=== PATIENT | male | born 1945 | race Caucasian/White ===

== ENCOUNTER 2017-09-29 16:40 | Inpatient (IN) | payer MEDICARE | END 2017-10-07 15:30 | DRG 193 | LOC: D.SDCHOLD 16:40 → D.MS 17:00 | DX: J18.9 Pneumonia, unspecified organism (principal); E43 Unspecified severe protein-calorie malnutrition; J96.21 Acute and chronic respiratory failure with hypoxia; J96.22 Acute and chronic respiratory failure with hypercapnia; J44.0 Chronic obstructive pulmonary disease with (acute) lower respiratory infection; J44.1 Chronic obstructive pulmonary disease with (acute) exacerbation; Z68.1 Body mass index [BMI] 19.9 or less, adult; F17.203 Nicotine dependence unspecified, with withdrawal; M06.9 Rheumatoid arthritis, unspecified; I50.9 Heart failure, unspecified; I25.10 Atherosclerotic heart disease of native coronary artery without angina pectoris ==

== ENCOUNTER 2018-05-05 22:07 | Observation (INO) | payer MEDICARE ==
[~2018-05-05] VITALS: Ht 175.3 cm; Wt 49.9 kg
--- NOTE | ~2018-05-05 | OP ---
PATIENT NAME: WOODROW GANT MEDICAL RECORD: [id number] :47 LOCATION:D.M2 D.2115 ADMISSION DATE:05/05/18 SURGEON: GENEVIEVE PINO MD DATE OF OPERATION: 05/06/2018 PROCEDURE: Left heart catheterization, selective coronary angiography, right radial. CATHETERS: [place] catheter, radial sheath. The procedure was well tolerated. We proceeded to do PTCA stenting of the LAD. Procedure was finished. FINDINGS: Left ventriculography in 30-degree CORREA view: Normal wall motion and normal systolic function. CORONARY ANATOMY: LEFT MAIN: Left main is free of disease. LAD: Has a severe diffuse proximal stenosis before the takeoff of first diagonal. CIRCUMFLEX: Free of disease. RIGHT CORONARY ARTERY: Totally occluded, fills via left to right collaterals. IMPRESSION AND PLAN: Intervention to the LAD momentarily. DESCRIPTION OF PROCEDURE: Using indwelling radial sheath, EBU 3.5 guiding catheter provided good guide catheter support followed by 300 cm Whisper wire, which was placed across the diffusely 80% to 90% stenosed LAD down this portion of vessel. Stent deployed was a 3.0 x 30 mm Integrity nondrug-eluting stent up to 14 atmospheres for 45 seconds. Final angiography shows excellent resolution of diffuse 80% to 90% stenosis to no significant residual. YEIMY flow was 3 throughout the procedure. Plavix was loaded in the lab. Sheath closed with TR band. TRANSINT:[id number] Voice Confirmation ID: [id number] DOCUMENT ID: [id number] GENEVIEVE PINO MD at 1313 CC: [id number] DICTATION DATE: 05/06/18 1332 LOAN ORIGINATOR: 05/06/18 1338 DIS IN 05/07/18 [place] [id number] [place] [id number]
--- NOTE | ~2018-05-05 | CN ---
PATIENT NAME:WOODROW GANT MEDICAL RECORD: [id number] : 47 LOCATION:Carlos D.2115 ADMIT DATE: 05/05/18 ACCOUNT: [id number] CONSULTING PHYSICIAN: GENEVIEVE PINO MD REFERRING PHYSICIAN: MARY THURMAN MD DATE OF CONSULTATION: 05/06/2018 HISTORY OF PRESENT ILLNESS: A 72-year-old gentleman with a known history of coronary artery disease, status post DORMITORY KEEPER and stenting of the right coronary in 2011, has a history of obstructive pulmonary disease. He is doing fairly well from the cardiovascular point. Breathing has a class II-III symptomatology from obstructive standpoint. However, yesterday had an argument with his roommate, began to leave the room, had onset of chest tightness and pressure radiating to the jaw, reminiscent of his previous angina. We are asked to see him concerning his cardiovascular status. PAST MEDICAL HISTORY: Includes, 1. History of obstructive pulmonary disease. 2. Coronary artery disease as described above. 3. Dyslipidemia. ALLERGIES: CHANTIX. MEDICATIONS: Include, Pulmicort 0.5 b.i.d., tramadol 50 mg q. 6 hours, trazodone 50 mg at bedtime, Paxil 30 every day, and aspirin 81 every day. SOCIAL HISTORY: Currently, resides in a fci, previously a heavy smoker. REVIEW OF SYSTEMS: The patient reports easy bruising but reports no swollen glands. The patient reports no fever, no night sweats, no significant weight gain, no significant weight loss. No significant exercise tolerance. The patient reports no dry eyes, no irritation, no vision change. Patient reports no difficulty hearing and no ear pain. Patient reports no frequent nose bleeds or nose and sinus problems. Patient reports on arm pain on exertion. No shortness of breath while lying down. No history of heart murmur. Patient reports no cough, no wheezing or coughing up blood. Patient reports no abdominal pain, no vomiting. Normal appetite. No diarrhea and not vomiting blood. No nausea and no constipation. Patient reports no incontinence. No difficulty urinating. No hematuria. No increased frequency. Patient reports no muscle aches. No weakness, no arthralgias, no back pain. No swelling of the extremities. Patient reports no abnormal mole, no jaundice, no rashes. Reports no loss of consciousness. No weakness and no numbness. No seizures, dizziness, or headaches. The patient reports no depression, no sleep disturbance, feeling safe in a relationship and no alcohol abuse. Patient reports on fatigue. Reports no runny nose or sinus pressure. No itching, no hives, and no frequent sneezing. PHYSICAL EXAMINATION: GENERAL: Elderly gentleman, in no acute distress. VITAL SIGNS: Blood pressure 107/63, pulse 78 and regular. HEENT: Normocephalic, atraumatic. NECK: No bruits noted. HEART: Regular, occasional extrasystole. LUNGS: Prolonged expiratory phase with a few expiratory wheezes but actually CONSULT REPORT [id number] WOODROW GANT fairly good air movement. ABDOMEN: Soft, nontender. EXTREMITIES: Pulses well preserved 2+ with no edema. NEUROLOGIC: Grossly intact. DIAGNOSTIC DATA: ECG shows minor nonspecific ST-T changes, no old to compare to. IMPRESSION: Unstable angina/acute coronary syndrome. PLAN: For diagnostic angiography, intervention based on above. TRANSINT:[id number] Voice Confirmation ID: [id number] DOCUMENT ID: [id number] GENEVIEVE PINO MD at 1313 CC: [id number] DICTATION DATE: 05/06/18827 SCALE ASSEMBLY SET UP WORKER: 05/06/18928 DIS IN 05/07/18 [facility] [address] [place] [address]
--- NOTE | ~2018-05-05 | HEMODYNAMI ---
PATIENT:WOODROW GANT MEDICAL RECORD: [id number] : 47 [facility]115 [id number] ADMISSION DATE: 05/05/18 Generatedon:05/06/201813:21 Patient name: WOODROW GANT Patient #: [id number] SSN: : 1945 Date of study: 05/06/2018 Page: Of Hemodynamic Procedure Report Patient Data Patient Demographics Procedure consent was obtained First Name: WOODROW Gender: Male Last Name: ALFREDA : 1945 Middle Initial: D Age: 72 year(s) Patient #: [id number] Race: Unknown Additional ID: [id number] Contact details [address]: [address] [place] [address] State: [place] City: [place] Zip code: [address] Past Medical History Allergies Allergen Reaction Date Comments Reported Other allergy 05/06/2018 chantix Admission Admission Data Admission Date: 05/05/2018 Admission Time: 23:37 Admit Source: Emergency department Room #: D.2115 Weight (lbs.): 110.23 Weight (kg.): 50 Procedure Procedure Types Cath Procedure Diagnostic Procedure LHC LH w/Coronaries Sedation Charges Moderate Sedation up to 15 minutes PCI Procedure Coronary Stent Coronary Stent Initial Procedure Description Procedure Date Procedure Date: 05/06/2018 Procedure Start Time: 13:00 Procedure End Time: 13:18 Procedure Staff Name Function Marciano Guidry MD Performing Physician Abilio Stafford RN Nurse Corrine Modi RT Monitor Anival Martinez RT Scrub Procedure Data Cath Procedure Fluoroscopy Diagnostic fluoroscopy Total fluoroscopy Time: 2.9 time: 2.9 min min Diagnostic fluoroscopy Total fluoroscopy dose: 148 dose: 148 mGy mGy Contrast Material Contrast Material Type Amount (ml) Isovue 300 103 Entry Location Entry Primary Successful Side Size Upsize Upsize Entry Closure [place] ccessful Closure Location (Fr) 1 (Fr) 2 (Fr) Remarks Device Remarks Radial Right 6 Fr Mechanical artery Short Compression Estimated blood loss: 10 ml Diagnostic catheters Device Type Used For End Catheter Placement DIAGNOSTIC [place] 110cm 5 Procedure Fr catheter ([id number]) Procedure Complications No complications Procedure Medications Medication Administration Route Dosage Oxygen NC 2 l/min Heparin Flush Bag added to field 2 bags (1000units/500ml NS) 0.9% NaCl I.V. 100 ml/hr Radial Cocktail added to field 1 syringe (Verapomil 2mg/Nitro 400mcg/Heparin 1500units) Fentanyl I.V. 50 mcg Versed I.V. 1 mg Fentanyl I.V. 50 mcg Versed I.V. 1 mg Heparin Bolus I.V. 4000 units Integrilin (Bolus I.V. 4.5 ml 2mg/ml) Integrilin (Bolus wasted 5.5 ml 2mg/ml) Plavix P.O. 600 mg Hemodynamics Rest Heart Rate: 79 (bpm) Pressure Samples Time Site Value (mmHg) Purpose Heart Use Rate(bpm) 13:03 LV 87/2,-3 Snapshot 100 Gradients Valve Time Site Site Mean SEP/DFP Peak To Heart Use 1 2 (mmHg) (sec/min) Peak Rate (mmHg) (bpm) Aortic 13:04 LV AO 91 Snapshots Pre Cath Intra NCS Post Cath Vital Signs Time Heart Resp SPO2 etCO2 NIBP (mmHg) Rhythm Pain Sedation Rate (ipm) (%) (mmHg) Status Level (bpm) 12:28:20 85 26 99 0 117/81(111) NSR 0 (11) 10(A) , No pain 12:32:26 86 20 98 0 106/73(86) NSR 0 (11) 10(A) , No pain 12:36:33 85 17 96 0 87/57(80) NSR 0 (11) 10(A) , No pain 12:40:33 80 17 92 0 90/62(79) NSR 0 (11) 10(A) , No pain 12:44:31 81 16 89 0 100/67(85) NSR 0 (11) 10(A) , No pain 12:48:32 83 16 89 0 95/67(82) NSR 0 (11) 10(A) , No pain 12:52:32 79 16 91 0 105/69(91) NSR 0 (11) 10(A) , No pain 12:56:36 83 16 91 0 105/69(85) NSR 0 (11) 10(A) , No pain 13:00:38 87 16 90 0 108/76(94) NSR 0 (11) 9(A) , No pain 13:04:46 92 14 91 0 89/60(76) NSR 0 (11) 9(A) , No pain 13:08:43 89 15 89 0 106/74(84) NSR 0 (11) 9(A) , No pain 13:12:47 86 15 91 0 112/74(94) NSR 0 (11) 9(A) , No pain 13:16:53 87 15 92 0 108/71(86) NSR 0 (11) 10(A) , No pain 13:18:41 84 17 92 0 108/75(85) NSR 0 (11) 10(A) , No pain Medications Time Medication Route Dose Verified Delivered Reason Note s Effectiveness by by 12:27:36 Oxygen NC 2 l/min Marciano Knox Per physician [facility] Stafford RN, MD 12:27:44 Heparin Flush added 2 bags Marciano Knox used for Bag to [facility] Ellis Stafford RN procedure (1000units/500ml field SPENCER NS) 12:27:53 0.9% NaCl I.V. 100 Marciano Knox Per physician ml/hr [facility] Ellis Stafford RN, MD 12:28:01 Radial Cocktail added 1 Marciano Knox used for (Verapomil to syringe [facility] Ellis Stafford RN procedure 2mg/Nitro field SPENCER 400mcg/Heparin 1500units) 12:59:26 Fentanyl I.V. 50 mcg Marciano Knox for sedation [facility] Ellis Stafford RN, MD 12:59:33 Versed I.V. 1 mg Marciano Knox for sedation [facility] Ellis Stafford RN, MD 13:03:38 Fentanyl I.V. 50 mcg Marciano Knox for sedation [facility] Ellis Stafford RN, MD 13:03:41 Versed I.V. 1 mg Marciano Knox for sedation [facility] Ellis Stafford RN, MD 13:10:30 Heparin Bolus I.V. [address] for units [facility] Stafford RN anticoagulation 13:10:42 Integrilin I.V. 4.5 ml Marciano Knox for (Bolus 2mg/ml) [facility] Ellis Stafford RN antiplatelet MD therapy 13:10:48 Integrilin wasted 5.5 ml Marciano Knox for (Bolus 2mg/ml) [facility] Ellis Stafford RN antiplatelet MD therapy 13:17:47 Plavix P.O. [address] [facility] Stafford RN antiplatelet MD therapy Procedure Log Time Note 12:00:35 Anival Martinez RT(R) sent for patient. Start room use. 12:17:12 Informed consent obtained and on chart 12:17:16 Admit Source: Emergency department 12:17:34 Diagnostic Cath status Elective 12:17:45 Time tracking: Regular hours (M-F 7:00 - 5:00) 12:17:48 Plan of Care:Hemodynamics will remain stable., Cardiac rhythm will remain stable., Comfort level will be maintained., Respiratory function will remain adequate., Patient/ family verbilizes understanding of procedure., Procedure tolerated without complication., Recovers from procedure without complications.. 12:17:53 Patient received from Med II to CCL 3 Alert and oriented. Tansferred to table in Supine position. 12:17:54 Warm blankets applied, and carlos hugger turned on for patient comfort. 12:17:57 Correct patient and procedure confirmed by team. 12:17:58 ECG and BP/O2 sat monitors applied to patient. 12:17:59 Pre-procedure instructions explained to patient. 12:18:00 Pre-op teaching completed and patient verbalized understanding. 12:18:10 H&P Date Dictated: 05/05/2018 Within 30 days and on chart., H&P Addendum completed by physician on day of procedure. (MUST COMPLETE FOR ALL OUTPATIENTS). 12:27:16 Vital chart was started 12:27:36 Oxygen 2 l/min NC was administered by Abilio Stafford RN; Per physician; 12:27:44 Heparin Flush Bag (1000units/500ml NS) 2 bags added to field was administered by Abilio Stafford RN; used for procedure; 12:27:53 0.9% NaCl 100 ml/hr I.V. was administered by Abilio Stafford RN; Per physician; 12:28:01 Radial Cocktail (Verapomil 2mg/Nitro 400mcg/Heparin 1500units) 1 syringe added to field was administered by Abilio Stafford RN; used for procedure; 12:33:29 Baseline sample Acquired. 12:33:32 Rhythm: sinus rhythm 12:33:33 Full Disclosure recording started 12:33:37 Patient NPO since Midnight. 12:33:45 Patient allergic to Other allergychantix 12:33:46 Is the patient allergic to Iodine/contrast media? No. 12:34:17 Is patient on blood thinner?No 12:34:18 Patient diabetic? No. 12:34:22 Previous problem with sedation/anesthesia? No ? 12:34:23 Snore? Yes 12:34:24 Sleep apnea? No 12:34:24 Deviated septum? No 12:34:25 Opens mouth fully? Yes 12:34:26 Sticks out tongue? Yes 12:34:30 Airway obstruction? Yes COPD 12:34:34 Dentures? Yes IN TIGHT 12:34:37 Pre procedure: right dorsailis pedis pulse 2+ Normal; easily identifiable; not easily obliterated 12:34:38 Modified Wayne's test Ulnar < 7 seconds 12:34:41 Patient pain scale 0/10 ?. 12:34:45 IV patent on arrival in left antecubital with 0.9% NaCl at [facility]. 12:35:20 Lab Result : BUN 22 mg/dl 12:35:20 Lab Result : Creatinine 0.9 mg/dl 12:35:20 Lab Result : Hemoglobin 12.7 g/dl 12:35:20 Lab Result : Hematocrit 38.6 % 12:35:23 Lab results completed and on chart. 12:35:25 Right Radial & Right Groin area was prepped with chlora-prep and draped in sterile fashion 12:35:26 Alarms reviewed by R. N. 12:35:27 Sharps counted by scrub and verified by R.N. 12:35:28 Use device set Radial Dx or PCI 12:35:29 ACIST Syringe (75654) opened to sterile field. 12:35:30 Medline Cath Pack ([id number]) opened to sterile field. 12:35:30 Bag Decanter (2002) opened to sterile field. 12:35:31 ACIST Hand Control (82663) opened to sterile field. 12:35:32 ACIST Manifold (15623) opened to sterile field. 12:35:32 Tegaderm 4 x 4 (1626W) opened to sterile field. 12:35:32 MBrace Wrist Support ([id number]) opened to sterile field. 12:35:33 SHEATH 6Fr Prelude Radial ([id number]) opened to sterile field. 12:35:34 DIAGNOSTIC WIRE .035 260cm J wire (235729) opened to sterile field. 12:35:47 Patient Weight : 110.23 lbs 12:50:37 Zero performed for pressure channel P1 12:58:56 --------ALL STOP TIME OUT------ 12:58:57 Final Timeout: patient, procedure, and site verified with staff and physician. All members of the team are in agreement. 12:59:00 Right Radial & Right Groin site verified by team. 12:59:03 Physical assessment completed. ASA score P 2 - A patient with mild systemic disease as per Marciano Guidry MD. 12:59:06 Sedation plan: IV Moderate Sedation Medication:Versed, Fentanyl 12:59:26 Fentanyl 50 mcg I.V. was administered by Abilio Stafford RN; for sedation; 12:59:33 Versed 1 mg I.V. was administered by Abilio Stafford RN; for sedation; 13:00:11 Procedure started. 13:00:19 Local anesthetic to right radial artery with Lidocaine 2% by Marciano Guidry MD.INITIAL ACCESS ONLY 13:02:11 A 6 Fr Short sheath was inserted into the Right Radial artery 13:03:03 A DIAGNOSTIC [place] 110cm 5 Fr catheter (134153) was advanced over the wire and used for Procedure. 13:03:38 Fentanyl 50 mcg I.V. was administered by Abilio Stafford RN; for sedation; 13:03:41 Versed 1 mg I.V. was administered by Abilio Stafford RN; for sedation; 13:03:41 LV gram done using CROREA 13:03:44 Injector settings: Ml/sec: 7, Volume: 15, 13:04:01 LV hemodynamics recorded. 13:04:14 EF : 50 % 13:05:25 LCA angiography performed. 13:07:08 Catheter exchanged over wire. 13:07:27 INFLATOR Merit BasixCompak (CD1766) opened to sterile field. 13:07:29 WHISPER 300cm guide wire ([id number]) opened to sterile field. 13:07:59 GUIDE 6FR EBU 3.5 catheter ([id number]) opened to sterile field. 13:08:46 6 Fr EBU 3.5 guide catheter was inserted over the wire 13:10:30 Heparin Bolus 4000 units I.V. was administered by Abilio Stafford RN; for anticoagulation; 13:10:42 Integrilin (Bolus 2mg/ml) 4.5 ml I.V. was administered by Abilio Stafford RN; for antiplatelet therapy; 13:10:48 Integrilin (Bolus 2mg/ml) 5.5 ml wasted was administered by Abilio Stafford RN; for antiplatelet therapy; 13:11:17 WHISPER 300 wire advanced. 13:12:51 Wire advanced across lesion. 13:13:48 Place stent Inflation Number: 1 A INTEGRITY OTW 3.0 X 30 stent ([id number]) was prepped and advanced across the Mid LAD. The stent was deployed at 14 VERONICA for 0:20 (min:sec). 13:14:37 Stent catheter was removed intact over wire. 13:14:38 Wire removed. 13:14:38 Guide catheter removed. 13:14:53 Procedure ended.(Physican Out) 13:15:23 TR BAND Standard ([id number]) opened to sterile field. 13:15:42 Sheath removed intact; hemostasis achieved with Mechanical Compression to the Right Radial artery. 13:15:55 Fluoroscopy time 02.90 minutes. 13:16:06 Flurop Dose total: 148 13:16:06 Fluoroscopy dose: 148 mGy 13:16:09 Contrast amount:Isovue 300 103ml. 13:16:11 Sharps counted by scrub and verified by R.N. 13:16:13 TR band inflated with 12cc of air. 13:16:24 Post-procedure physical assessment completed. ASA score P 2 - A patient with mild systemic disease as per Marciano Guidry MD. 13:16:27 Post procedure rhythm: sinus rhythm 13:16:34 Estimated blood loss: 10 ml 13:16:37 Post procedure instruction explained to patient.Patient verbalizes understanding. 13:16:38 Patient needs reinforcement of post procedure teaching. 13:17:47 Plavix 600 mg P.O. was administered by Abilio Stafford RN; for antiplatelet therapy; 13:17:58 Procedure type changed to Cath procedure, Diagnostic procedure, LHC, LHC w/Coronaries, Sedation Charges, Moderate Sedation up to 15 minutes, PCI procedure, Coronary Stent, Coronary Stent Initial 13:18:22 Procedure and supply charges have been captured, reviewed, submitted and are correct. 13:18:24 Procedure Complication : No complications 13:18:26 Vital chart was stopped 13:18:26 See physician's report for complete and final results. 13:18:27 Report given to PCU. 13:18:31 Patient transfered to PCU with Bed. 13:18:33 Procedure ended. 13:18:33 Full Disclosure recording stopped 13:18:37 End room use (Document Last) Intervention Summary Intervention Notes Time ActionType Lesion and Equipment Action# Pressure Duration Attributes Used 13:13:48 Place stent Mid LAD INTEGRITY 1 14 00:20 OTW 3.0 X 30 stent ([id number]) Device Usage Item Name Manufacture Quantity Catalog Number Hospital Part Current M inimal Lot# / Charge Number Stock Stock Serial# Code ACIST Syringe Acist 1 40716 542615 765558 021144 2 0 (93954) Medical Systems Inc Medline Cath Cardinal 1 [id number] 333458 99994 097456 5 Explore.To Yellow Pages ([id number]) Bag Decanter Microtek 1 2001S 888377 07735 914355 5 (2001S) Medical Inc. ACIST Hand Acist 1 90720 228792 492943 698776 5 Control (42321) Medical Systems Inc ACIST Manifold Acist 1 05503 661247 413184 880203 5 (02183) Medical Systems Inc Tegaderm 4 x 4 3M 1 1626W 831060 608067 436535 5 (1626W) MBrace Wrist Advanced 1 140-0250-00 139714 69495 116267 5 Support Vascular ([id number]) Dynamics SHEATH 6Fr Merit 1 [id number] 547331 298570 131348 5 Prelude Radial Medical ([id number]) DIAGNOSTIC WIRE St Pradeep 1 970525 197570 438742 147122 3 0 .035 260cm J wire (889771) DIAGNOSTIC Terumo 1 82-6455 175779 602008 849227 5 [place] 110cm 5 Fr catheter (570283) INFLATOR Merit Merit 1 VI1080 932562 676932 218489 1 5 ECO-SAFE Medical (MO2935) WHISPER 300cm Vo 1 [id number] 332428 010787 380214 5 guide wire Vascular ([id number]) GUIDE 6FR EBU Medtronic 1 [id number] 385427 90449 363452 3 3.5 catheter ([id number]) INTEGRITY OTW Medtronic 1 [id number] 657770 237438 4 [id number] 3.0 X 30 stent ([id number]) TR BAND Terumo 1 [id number] 356874 366277 109916 4 0 Standard ([id number]) Signature Audit Canmer Stage Time Signature Unsigned Intra-Procedure 05/06/2018 Corrine Modi 1:21:34 PM RT(R) Signatures Monitor : Corrine Modi Signature : RT Date : Time : [place] [address] [place] [address]
[~2018-05-05 22:07] MED LIST: ADVAIR 250/501 DISK INH; BAYER CHEWABLE81 MG PO; COLACE100 MG PO; DULCOLAX10 MG/SUPP RC; FLUTICASONE PRO16 GM NASAL; HYDROCODON-ACE1 EAC7 PO; HYDROCODONE-APA1 TAB PO; IPRAT-ALBUT 0.5-3 ML UPD; LEVAQUIN500 MG PO; METAMUCIL FIB1 WAFER PO; MUCINEX600 MG PO; NICODERM C1 PATCH .1 TRANSDERM; NICODERM C1 PATCH .3 TRANSDERM; PAXIL30 MG PO; PERFOROMIS20 MCG/21 UPD; PREDNISONE20 MG PO; PROAIR HFA8.5 GM INH; PROTONIX40 MG PO; PROVENTIL/2.5 MG/3 M NEB; PULMICORT0.5 MG/21 UPD; SINGULAIR10 MG PO; TESSALON PERLE100 MG PO; TRAZODONE HCL50 MG PO; ZITHROMAX250 MG PO; ZOFRAN ODT4 MG/UDTAB PO
[2018-05-05] MEDS ORDERED: BUSPAR10 MG PO (22:16)
[2018-05-05] MEDS ORDERED: LINZESS145 MCG PO (22:18)
[2018-05-05] MEDS ORDERED: ULTRAM50 MG PO (22:21)
[2018-05-05 22:56] LABS: BASOPHILS 0.6 % (0-2); EOSINOPHILS 3.1 % (0-7); HEMATOCRIT 38.6 % (42.0-54.0); HEMOGLOBIN 12.7 g/dL (13.5-17.5); IMMATURE GRANULOCYTES 0.2 % (0-5); LYMPHOCYTES 26.4 % (15-50); MCH 29.1 pg (26.0-34.0); MCHC 32.9 g/dL (31.0-37.0); MCV 88.3 fL (80.0-100.0); MEAN PLATELET VOLUME 9.5 fL (7.4-10.4); MONOCYTES 16.7 % (2-11); RBC 4.37 10x6/uL (4.20-6.10); RDW 17.2 % (11.5-14.5); WBC 8.5 10x3/uL (4.8-10.8)
[2018-05-05 22:57] LABS: PLATELET COUNT 186 10x3/uL (130-400)
[2018-05-05 23:19] LABS: ALBUMIN 3.3 g/dL (3.4-5.0); ALKALINE PHOSPHATASE 112 U/L (46-116); ALT (SGPT) 28 U/L (10-68); BILIRUBIN - TOTAL 0.25 mg/dL (0.2-1.3); CALC OSMOLALITY 279 mosm/kg (275-300); CARBON DIOXIDE 37.6 mmol/L (21.0-32.0); CHLORIDE - SERUM 98 mmol/L (98-107); CREATININE - SERUM 0.9 mg/dL (0.6-1.3); GLUCOSE 89 mg/dL (74-106); POTASSIUM - SERUM 4.1 mmol/L (3.5-5.1); PROTEIN - SERUM 7.9 g/dL (6.4-8.2); SODIUM 139 mmol/L (136-145); UREA NITROGEN 22 mg/dL (7-18); eGFR NON AFRICAN AMERICAN 88 mL/min (90-120)
[2018-05-05 23:28] LABS: CREATINE KINASE 59 UL (21-232); TROPONIN-I < 0.017 ng/mL (0.000-0.060)
[2018-05-05 23:30] VITALS: BP 121/60
[2018-05-06] VITALS (7 sets, daily range): BP systolic 79–121; BP diastolic 45–63; Ht 175.3 cm; Wt 49.9 kg
[2018-05-06 06:50] LABS: CKMB 1.2 U/L (0.0-3.6); CREATINE KINASE 55 UL (21-232); TROPONIN-I < 0.017 ng/mL (0.000-0.060)
[2018-05-06 10:11] LABS: BASOPHILS 0.4 % (0-2); EOSINOPHILS 1.9 % (0-7); HEMATOCRIT 39.3 % (42.0-54.0); IMMATURE GRANULOCYTES 0.3 % (0-5); LYMPHOCYTES 18.4 % (15-50); MCH 29.2 pg (26.0-34.0); MCHC 33.1 g/dL (31.0-37.0); MCV 88.3 fL (80.0-100.0); MEAN PLATELET VOLUME 9.6 fL (7.4-10.4); MONOCYTES 13.4 % (2-11); NEUTROPHILS 65.6 % (40-80); PLATELET COUNT 189 10x3/uL (130-400); RBC 4.45 10x6/uL (4.20-6.10); WBC 7.5 10x3/uL (4.8-10.8)
[2018-05-06 10:45] LABS: CALCIUM 8.6 mg/dL (8.5-10.1); CHLORIDE - SERUM 98 mmol/L (98-107); CKMB 1.1 U/L (0.0-3.6); CREATINE KINASE 61 UL (21-232); CREATININE - SERUM 0.9 mg/dL (0.6-1.3); POTASSIUM - SERUM 4.3 mmol/L (3.5-5.1); SODIUM 139 mmol/L (136-145); TROPONIN-I < 0.017 ng/mL (0.000-0.060); eGFR NON AFRICAN AMERICAN 88 mL/min (90-120)
[2018-05-06 10:48] LABS: CALC OSMOLALITY 281 mosm/kg (275-300); GLUCOSE 144 mg/dL (74-106); UREA NITROGEN 15 mg/dL (7-18)
[2018-05-07] VITALS: BP 124/63
[2018-05-07 04:00] VITALS: BP 98/54
[2018-05-07 05:09] LABS: BASOPHILS 0.3 % (0-2); EOSINOPHILS 2.5 % (0-7); HEMATOCRIT 36.6 % (42.0-54.0); HEMOGLOBIN 11.9 g/dL (13.5-17.5); IMMATURE GRANULOCYTES 0.3 % (0-5); LYMPHOCYTES 20.6 % (15-50); MCH 28.4 pg (26.0-34.0); MCHC 32.5 g/dL (31.0-37.0); MCV 87.4 fL (80.0-100.0); MONOCYTES 18.5 % (2-11); NEUTROPHILS 57.8 % (40-80); PLATELET COUNT 182 10x3/uL (130-400); RBC 4.19 10x6/uL (4.20-6.10); RDW 17.2 % (11.5-14.5); WBC 8.6 10x3/uL (4.8-10.8)
[2018-05-07 05:32] LABS: CALC OSMOLALITY 279 mosm/kg (275-300); CALCIUM 8.5 mg/dL (8.5-10.1); CARBON DIOXIDE 35.9 mmol/L (21.0-32.0); CHLORIDE - SERUM 101 mmol/L (98-107); CHOL - HDL RATIO 3.2 ratio (2.3-4.9); CHOLESTEROL, TOTAL 211 mg/dL (0-200); CREATININE - SERUM 0.8 mg/dL (0.6-1.3); HDL CHOLESTEROL 66 mg/dL (32-96); LDL CHOLESTEROL 137 mg/dL (0-100); LDL-HDL RATIO 2.1 ratio (1.5-3.5); POTASSIUM - SERUM 4.2 mmol/L (3.5-5.1); SODIUM 140 mmol/L (136-145); TRIGLYCERIDE 44 mg/dL (30-200); UREA NITROGEN 18 mg/dL (7-18); eGFR NON AFRICAN AMERICAN > 90 mL/min (90-120)
[2018-05-07 05:39] LABS: GLUCOSE 87 mg/dL (74-106)
[2018-05-07 09:35] VITALS: BP 117/60
[2018-05-07] MEDS ORDERED: PLAVIX75 MG PO (09:49)
[2018-05-07] MEDS ORDERED: PROTONIX40 MG PO (09:49)
== END 2018-05-07 11:59 ==
LOC: D.ER 22:07 → D.M2 23:37 → OBSVTIME 23:37 → D.M2 05-07 11:59
PROVIDERS: Emergency Medicine; Internal Medicine Interventional Cardiology; Internal Medicine Nephrology
DX: I25.110 Atherosclerotic heart disease of native coronary artery with unstable angina pectoris (principal); Z95.5 Presence of coronary angioplasty implant and graft; J44.9 Chronic obstructive pulmonary disease, unspecified; G89.29 Other chronic pain; M54.9 Dorsalgia, unspecified; K21.9 Gastro-esophageal reflux disease without esophagitis; F32.9 Major depressive disorder, single episode, unspecified; F41.9 Anxiety disorder, unspecified; E44.0 Moderate protein-calorie malnutrition; Z68.1 Body mass index [BMI] 19.9 or less, adult; E78.5 Hyperlipidemia, unspecified

== ENCOUNTER 2019-06-03 22:17 | Inpatient (IN) | payer MEDICARE, MEDICAID ==
[~2019-06-03] VITALS: Ht 175.3 cm; Wt 47.3 kg
[~2019-06-03 22:17] MED LIST changes: +BUSPAR10 MG PO; +LINZESS145 MCG PO; +PLAVIX75 MG PO; +ULTRAM50 MG PO
[2019-06-03] MEDS ORDERED: LEVAQUIN750 MG PO (22:25)
[2019-06-03] MEDS ORDERED: LIPITOR10 MG PO (22:25)
[2019-06-03] MEDS ORDERED: REMERON15 MG PO (22:26)
[2019-06-03] MEDS ORDERED: PROTONIX20 MG PO (22:26)
[2019-06-03] MEDS ORDERED: AUGMENTIN 875-11 TAB PO (22:27)
[2019-06-03] MEDS ORDERED: TRAZODONE HCL150 MG PO (22:27)
[2019-06-03] MEDS ORDERED: MUCINEX600 MG PO (22:28)
[2019-06-03] MEDS ORDERED: BUSPAR5 MG PO (22:28)
[2019-06-03] MEDS ORDERED: ATIVAN0.5 MG PO (22:29)
[2019-06-03] MEDS ORDERED: DULCOLAX10 MG/SUPP RC (22:29)
[2019-06-03] MEDS ORDERED: TYLENOL ARTHRI650 MG PO (22:30)
[2019-06-03 23:09] LABS: BASOPHILS 0.1 % (0-2); EOSINOPHILS 0.4 % (0-7); HEMATOCRIT 35.6 % (42.0-54.0); HEMOGLOBIN 11.8 g/dL (13.5-17.5); IMMATURE GRANULOCYTES 0.3 % (0-5); LYMPHOCYTES 4.4 % (15-50); MCH 29.1 pg (26.0-34.0); MCHC 33.1 g/dL (31.0-37.0); MCV 87.9 fL (80.0-100.0); MEAN PLATELET VOLUME 10.4 fL (7.4-10.4); MONOCYTES 13.9 % (2-11); NEUTROPHILS 80.9 % (40-80); PLATELET COUNT 208 10x3/uL (130-400); RBC 4.05 10x6/uL (4.20-6.10); RDW 17.3 % (11.5-14.5)
[2019-06-03 23:10] VITALS: BP 107/58
[2019-06-03 23:22] LABS: APTT 30.9 SECONDS (22.8-39.4); INR 1.3 (0.85-1.17); PROTIME 15.6 SECONDS (11.6-15.0)
[2019-06-03 23:23] LABS: ALBUMIN 2.7 g/dL (3.4-5.0); ALKALINE PHOSPHATASE 128 U/L (46-116); ALT (SGPT) 41 U/L (10-68); BILIRUBIN - TOTAL 1.09 mg/dL (0.2-1.3); CALC OSMOLALITY 276 mosm/kg (275-300); CALCIUM 9.1 mg/dL (8.5-10.1); CARBON DIOXIDE 35.5 mmol/L (21.0-32.0); CHLORIDE - SERUM 97 mmol/L (98-107); CREATININE - SERUM 0.9 mg/dL (0.6-1.3); D-DIMER-QUANTITATIVE 0.8 ug/mLFEU (0.20-0.54); GLUCOSE 116 mg/dL (74-106); POTASSIUM - SERUM 4.3 mmol/L (3.5-5.1); PROTEIN - SERUM 7.4 g/dL (6.4-8.2); SODIUM 136 mmol/L (136-145); UREA NITROGEN 25 mg/dL (7-18); eGFR NON AFRICAN AMERICAN 88 mL/min (90-120)
[2019-06-03 23:38] LABS: CKMB 0.6 U/L (0.0-3.6); CREATINE KINASE 67 UL (21-232); PRO BNP 350 pg/mL (0-125); TROPONIN-I < 0.017 ng/mL (0.000-0.060)
--- NOTE | 2019-06-04 02:11 | NUR ---
PT RECIEVED FROM [facility] RODRIGUEZ IN ER. PT ARRIVED VIA STRECHER ON 4L-O2 AT 94%.RR EVEN AND UNLABORED AT THIS TIME. PT IS A/O X4. NO S/S OF DISTRESS AT THIS TIME. PT RECIEVING ANTIBIOTIC UPON ARRIVAL. TELE PLACED. PT RUNNING 99-SR. VITALS STABLE AT THIS TIME. PT REQUESED TO LEAVE JEANS ON. URINAL AT BEDSIDE. NON-SLIP SOCKS IN PLACE. MEDICATION LIST RECIEVED FROM [facility] AND RECONCILED AT THIS TIME. PT DENIES ANY PAIN OR FURTHER NEEDS AT THIS TIME. BED LOW, ALRARM IN PLACE, CALL LIGHT WITHIN REACH. WILL CONTINUE TO MONITOR.
[2019-06-04 03:21] VITALS: BP 98/57; BMI 16.4
[2019-06-04 04:00] VITALS: BP 98/58
--- NOTE | 2019-06-04 04:15 | NUR ---
BOOTH CASHIER ASSESSMENT HAS BEEN COMPLETED.
[2019-06-04 04:56] LABS: BASOPHILS 0.1 % (0-2); EOSINOPHILS 0 % (0-7); HEMATOCRIT 35.3 % (42.0-54.0); HEMOGLOBIN 11.7 g/dL (13.5-17.5); IMMATURE GRANULOCYTES 0.2 % (0-5); LYMPHOCYTES 1.8 % (15-50); MCHC 33.1 g/dL (31.0-37.0); MCV 87.6 fL (80.0-100.0); MEAN PLATELET VOLUME 10.9 fL (7.4-10.4); MONOCYTES 4.5 % (2-11); NEUTROPHILS 93.4 % (40-80); PLATELET COUNT 214 10x3/uL (130-400); RBC 4.03 10x6/uL (4.20-6.10); RDW 17.5 % (11.5-14.5); WBC 15.2 10x3/uL (4.8-10.8)
[2019-06-04 05:09] LABS: ALBUMIN 2.4 g/dL (3.4-5.0); ALKALINE PHOSPHATASE 123 U/L (46-116); ALT (SGPT) 38 U/L (10-68); BILIRUBIN - TOTAL 0.93 mg/dL (0.2-1.3); CALC OSMOLALITY 279 mosm/kg (275-300); CARBON DIOXIDE 32.3 mmol/L (21.0-32.0); CHLORIDE - SERUM 98 mmol/L (98-107); CREATININE - SERUM 0.9 mg/dL (0.6-1.3); GLUCOSE 141 mg/dL (74-106); POTASSIUM - SERUM 4.3 mmol/L (3.5-5.1); PROTEIN - SERUM 7.2 g/dL (6.4-8.2); SODIUM 137 mmol/L (136-145); UREA NITROGEN 23 mg/dL (7-18); eGFR NON AFRICAN AMERICAN 88 mL/min (90-120)
--- NOTE | 2019-06-04 06:09 | NUR ---
PT RESTING WITH EYES CLOSED RR EVEN AND UNLABORED. NO S/S OF DISTRESS AT THIS TIME. BED LOW CALL LIGHT WITHIN REACH. WILL CONTINUE TO MONITOR.
[2019-06-04 09:00] VITALS: BP 106/61
[2019-06-04 13:57] VITALS: BP 111/59
[2019-06-04 17:54] VITALS: BP 101/58
--- NOTE | 2019-06-04 19:01 | NUR ---
RESTING QUIETLY AND AROUSES EASILY PT DENIES NEEDS AND ASKS THAT I NOT DESTURB HIM AT THIS TIME BED IS LOW AND LOCKED AND CALL LIGHT IN REACH SRX2
--- NOTE | 2019-06-04 19:51 | NUR ---
INFORMED PT HAS BEEN IN AFIB SINCE 4 PM HR IS 110 I WILL MONITOR FOR NOW ALSO BP RECHECK 96/55
[2019-06-04 20:00] VITALS: BP 88/60
[2019-06-05] VITALS: BP 90/56
--- NOTE | 2019-06-05 01:17 | NUR ---
I have reviewed this patient and I concur with the Shift Assessment completed by the Licensed Practical Nurse today this shift.
[2019-06-05 04:00] VITALS: BP 90/56
[2019-06-05 04:32] LABS: BASOPHILS 0 % (0-2); EOSINOPHILS 0 % (0-7); HEMATOCRIT 35.3 % (42.0-54.0); HEMOGLOBIN 11.5 g/dL (13.5-17.5); IMMATURE GRANULOCYTES 0.3 % (0-5); LYMPHOCYTES 2.5 % (15-50); MCH 28.9 pg (26.0-34.0); MCHC 32.6 g/dL (31.0-37.0); MCV 88.7 fL (80.0-100.0); MEAN PLATELET VOLUME 10.1 fL (7.4-10.4); MONOCYTES 3.5 % (2-11); NEUTROPHILS 93.7 % (40-80); PLATELET COUNT 219 10x3/uL (130-400); RBC 3.98 10x6/uL (4.20-6.10); RDW 17.8 % (11.5-14.5); WBC 14.6 10x3/uL (4.8-10.8)
[2019-06-05 04:56] LABS: CALC OSMOLALITY 285 mosm/kg (275-300); CALCIUM 8.5 mg/dL (8.5-10.1); CARBON DIOXIDE 31.3 mmol/L (21.0-32.0); CHLORIDE - SERUM 104 mmol/L (98-107); CREATININE - SERUM 0.8 mg/dL (0.6-1.3); GLUCOSE 136 mg/dL (74-106); MAGNESIUM - SERUM 2.3 mg/dL (1.8-2.4); PHOSPHOROUS 3.7 mg/dL (2.5-4.9); POTASSIUM - SERUM 3.9 mmol/L (3.5-5.1); SODIUM 141 mmol/L (136-145); UREA NITROGEN 21 mg/dL (7-18); eGFR NON AFRICAN AMERICAN > 90 mL/min (90-120)
--- NOTE | 2019-06-05 07:20 | NUR ---
PT RESTING IN BED, SHIFT ASSESSMENT PERFORMED. CALL LIGHT WITHIN REACH. DENIES ANY NEEDS AT THIS TIME, WILL CONT TO FOLLOW POC
[2019-06-05 09:27] VITALS: BP 96/43
--- NOTE | 2019-06-05 12:00 | NUR ---
PT RESTING IN BED EATING LUNCH, DENIES ANY NEEDS AT THIS TIME. CALL LIGHT WITHIN REACH. BED ALARM ON. WILL CONT TO FOLLOW POC
[2019-06-05 12:37] VITALS: BMI 16.6
[2019-06-05 17:49] VITALS: BP 103/69
--- NOTE | 2019-06-05 19:05 | NUR ---
AT REST BUTR AWAKE AND ALERT DENIES ANY NEEDS AT THIS TIME LUNGS ARE DEMINISHED SKIN WARM AND DRY BED IS LOW AND LOCKED PT HAS CALL LIGHT AND SR X2
--- NOTE | 2019-06-05 19:55 | NUR ---
SIT UP AND BECAME SOB LUNGS WITH SOME WHEEZE NOTED STAYED WITH PT TILL AIR HUNGER PASSED
[2019-06-05 20:00] VITALS: BP 102/65
--- NOTE | 2019-06-05 22:45 | NUR ---
PT SOB TX GIVEN AND SAT ARE IN UPPER 70s HR 150 AFIB SO RAPID CALLED
--- NOTE | 2019-06-05 23:23 | NUR ---
SECOND IV STARTED TO LEFT FOREARM FOR NEW ORDERS
[2019-06-06] VITALS (19 sets, daily range): BP systolic 92–135; BP diastolic 41–83
--- NOTE | 2019-06-06 01:01 | NUR ---
PT CHECK BP 115/66 94% ALERT AND EASILY AROUSED IV RATE TO KEEP OPEN BIPAP IN PLACE
[2019-06-06 05:30] LABS: BASOPHILS 0 % (0-2); EOSINOPHILS 0 % (0-7); HEMATOCRIT 33.6 % (42.0-54.0); HEMOGLOBIN 10.8 g/dL (13.5-17.5); IMMATURE GRANULOCYTES 0.4 % (0-5); LYMPHOCYTES 1.6 % (15-50); MCH 28.6 pg (26.0-34.0); MCHC 32.1 g/dL (31.0-37.0); MCV 89.1 fL (80.0-100.0); MEAN PLATELET VOLUME 10.7 fL (7.4-10.4); MONOCYTES 5.8 % (2-11); NEUTROPHILS 92.2 % (40-80); PLATELET COUNT 244 10x3/uL (130-400); RBC 3.77 10x6/uL (4.20-6.10); RDW 18.5 % (11.5-14.5); WBC 15.8 10x3/uL (4.8-10.8)
[2019-06-06 05:47] LABS: ALBUMIN 2.4 g/dL (3.4-5.0); ALKALINE PHOSPHATASE 130 U/L (46-116); ALT (SGPT) 93 U/L (10-68); BILIRUBIN - TOTAL 0.28 mg/dL (0.2-1.3); CALCIUM 8.2 mg/dL (8.5-10.1); CARBON DIOXIDE 31.7 mmol/L (21.0-32.0); CHLORIDE - SERUM 106 mmol/L (98-107); GLUCOSE 140 mg/dL (74-106); MAGNESIUM - SERUM 2.5 mg/dL (1.8-2.4); PHOSPHOROUS 3.1 mg/dL (2.5-4.9); PROTEIN - SERUM 6.8 g/dL (6.4-8.2); SODIUM 142 mmol/L (136-145); THYROID STIMULATING HORMONE 0.19 uIU/mL (0.36-3.74); eGFR NON AFRICAN AMERICAN 78 mL/min (90-120)
[2019-06-06 05:48] LABS: CALC OSMOLALITY 290 mosm/kg (275-300); POTASSIUM - SERUM 4.6 mmol/L (3.5-5.1); UREA NITROGEN 29 mg/dL (7-18)
--- NOTE | 2019-06-06 05:56 | NUR ---
PT AT THIS TIME REFUSES TO WEAR BIPAP I REPLACED WITH HIGH FLOW O2
--- NOTE | 2019-06-06 06:56 | NUR ---
WHILE RECEIVING BEDSIDE SHIFT REPORT AT 0650, RT AT BEDSIDE. PATIENT HAS OXYGEN SATURATION OF 79% ON HIGH FLOW NASAL CANULA. PATIENT IS NOT KEEPING BIPAP ON. PATIENT REQUIRES MORE SUPERVISION PER RT AND NEEDS TO BE TRANSFERREDT TO THE UNIT. THIS PATIENT HAS A RAPID RESPONSE LAST NIGHT FOR DESATING WELL PRIOR TO BEING PLACED ON BIPAP. CALL OIL SEAL ASSEMBLER TO NOTIFY OF CHANGE OF CONDITION AND RT REQUEST TO TRANSFER. CALLED DR. JUDD AND RECEIVED ORDER TO TRANSFER TO ICU AND MAKE SURE PULMONARY HAS BEEN CONSULTED. PATIENT HAS A CONSULTING PROVIDER. OIL SEAL ASSEMBLER ON UNIT AT THIS TIME CALLING ICU FOR A BED.
--- NOTE | 2019-06-06 07:25 | NUR ---
PATIENT TRANSFERRED TO ROOM 2309 AT THIS TIME.
--- NOTE | 2019-06-06 07:25 | NUR ---
PATIENT TRANSFERRED TO ICU ROOM 2309 AT THIS TIME.
--- NOTE | 2019-06-06 07:40 | NUR ---
PT RECIEVED AT THIS TIME. VSS. RESP AT BEDSIDE. WILL CONTINUE TO MONITOR
--- NOTE | 2019-06-06 09:20 | NUR ---
DR ORTEZ AT BEDSIDE NEW ORDERS RECIEVED. WILL ADM.
--- NOTE | 2019-06-06 10:15 | NUR ---
BIPAP REMOVED PT DID NOT TOLERATE. PT PLACED ON 10L HFNC O2 SAT 78-84% PLACED BACK ON BIPAP AT THIS TIME.
--- NOTE | 2019-06-06 11:00 | NUR ---
REASSESSMENT COMPLETE PER FLOW SHEET. VSS. PT RESTING COMFORTABLY DENIES NEEDS WILL CONTINUE TO MONITOR
--- NOTE | 2019-06-06 13:45 | MORECARE ---
CASE MANAGEMENT DISCHARGE SUMMARY PATIENT: WOODROW GANT UNIT: [id number] ADM DATE: 06/03/19 AGE: 73 : 46 SEX: M ROOM/BED: D.2309 AUTHOR: JACEY TORIBIO PHYSICIAN: REFERRING PHYSICIAN: EMILY JUDD MD DATE OF SERVICE: 06/06/19 Discharge Plan Patient Name: WOODROW GANT [facility] 1945 Planned Disposition: Nursing Facility [facility] Cert Anticipated Discharge Date: Discharge Date: Expected LOS: Initial Reviewer: [email or web address] Initial Review Date: 06/06/2019 Generated: 06/06/19 2:45 pm DCPIA - Discharge Planning Initial Assessment Updated by [email or web address]: Shruthi Batista on 06/06/19 1:43 pm * PCP BINTA * Pharmacy [facility] * Preadmission Environment Human Services Case Manager Skilled Nursing * Facility Name [facility] [phone] * ADLs Partial Dependent * Additional services required to return to the preadmission environment? No * Can the patient safely return to the preadmission environment? Yes * Has this patient been hospitalized within the prior 30 days at any hospital? No Patient Name: WOODROW GANT Page [id number] at 1345 All edits/amendments must be made on the electronic document DICTATION DATE: 06/06/19 1345 LABORER DRIVER: CRISTIAN 06/06/19 1345 RPT#: [id number] DC DATE: STATUS: ADM IN [facility] [address] [place] [address] END OF REPORT
--- NOTE | 2019-06-06 13:53 | MORECARE ---
CASE MANAGEMENT DISCHARGE SUMMARY PATIENT: WOODROW GANT UNIT: [id number] ADM DATE: 06/03/19 AGE: 73 : 46 SEX: M ROOM/BED: D.2309 AUTHOR: CATARINO,DOC PHYSICIAN: REFERRING PHYSICIAN: EMILY JUDD MD DATE OF SERVICE: 06/06/19 Discharge Plan Patient Name: WOODROW GANT [facility] [facility] 1945 Planned Disposition: Nursing Facility [facility] Cert Anticipated Discharge Date: Discharge Date: Expected LOS: Initial Reviewer: [email or web address] Initial Review Date: 06/06/2019 Generated: 06/06/19 2:52 pm Comments DCP- Discharge Planning Updated by [email or web address]: Shruthi Batista on 06/06/19 12:[address] Patient Name: WOODROW GANT Admission Status: ER Accout number: [id number] Admission Date: 06-03-2019 : 1945 Admission Diagnosis: Attending: EMILY JUDD Current LOS: 3 Anticipated DC Date: Planned Disposition: Nursing Facility [facility] Cert Primary Insurance: [facility] MEDICARE HMO or PPO Discharge Planning Comments: CM met with patient and explained CM role and obtained verbal consent. Patient is currently on BiPap and difficult to understand. Patient is a skilled nursing resident of [place] [address].( Medicaid bed) Patient does plan to return there upon discharge. CM called [facility] to verify bed status there and plan to readmit after discharge and they did agree to readmission. CM will continue to follow and assist as needed with discharge planning / needs. Furniture Finisher: Shruthi Batista DCPIA - Discharge Planning Initial Assessment Updated by [email or web address]: Shruthi Batista on 06/06/19 1:43 pm * PCP BINTA * Pharmacy [facility] * Preadmission Environment Skilled Nursing Senior Living * Facility Name [place] [id number] * ADLs Partial Dependent * Additional services required to return to the preadmission environment? No * Can the patient safely return to the preadmission environment? Yes * Has this patient been hospitalized within the prior 30 days at any hospital? No Last DP export: 06/06/19 12:45 Patient Name: WOODROW GANT Page 37975 at 1353 All edits/amendments must be made on the electronic document DICTATION DATE: 06/06/191351 TRACK WALKER: CRISTIAN 06/06/191351 RPT#: [id number] DC DATE: STATUS: ADM IN [facility] [address] [place] [address] END OF REPORT
--- NOTE | 2019-06-06 15:29 | NUR ---
REASSESSMENT COMPLETE PER FLOW SHEET. VSS. NO NEW CHANGES PT RESTING COMFORTABLY WILL CONTINUE TO MONITOR
--- NOTE | 2019-06-06 19:00 | NUR ---
SHIFT ASSESSMENT COMPLETE. PT IS SITITNG UP IN BED AND WEARING HIS BIPAP. A&O X4 AND HE DOES NOT COMPLAIN OF ANY PAIN OR DISCOMFORT AT THIS TIME. PERRLA, 4 MM, BRISK REACTION TO LIGHT. RR SHALLOW, BIPAP 12/5 @ 65%. O2 SAT 90-94%. EXP WHEEZES HEARD BILAT THROUGHOUT UPPER AND MIDDLE LOBES, DIMINISHED AT THE BASES. S1S2 AUDIBLE, HR 79 CONTROLLED A-FIB SHOWING ON THE MONITOR. ABD FLAT, NONTENDER TO TOUCH, BS ACTIVE X4. PT IS ABLE TO USE URINAL BY HIMSELF, EMPTIED 200 CC CLEAR YELLOW URINE. RADIAL AND PEDAL PULSES PALP. L AC PIV INFUSING NS @ 50 CC/HR. L WRIST PIV INFUSING AMIO GTT @ 0.5 MG/MIN (16.7 ML/HR). NO S/S OF INFILTRATION NOTED. PT IS ABLE TO REPOSITION HIMSELF INDEPENDENTLY. NO FURTHER NEEDS AT THIS TIME. VSS. WILL CONT TO MONITOR CLOSELY.
--- NOTE | 2019-06-06 21:00 | NUR ---
REMOVED BIPAP FOR PM MEDICATIONS. PT ABLE TO STAY OFF BIPAP FOR LESS THAN 2 MINUTES, 02 SAT DROPPED TO 80%. BIPAP PLACED BACK ON PT. HE WAS ABLE TO SWALLOW MEDICATION WITH NO ISSUE. NO S/S ASPIRATION NOTED. VSS. REPOSITIONED FOR COMFORT. CALL LIGHT IN REACH, BED IN LOWEST POSITION. WILL CONT WITH POC.
--- NOTE | 2019-06-06 23:00 | NUR ---
REASSESSMENT COMPLETE. PT IS ABLE TO REPOSITION HIMSELF INDEPENDENTLY. EMPTIED CLEAR YELLOW URINE FROM URINAL. PT REMAINS IN CONTROLLED A-FIB. BIPAP ON, O2 SAT 90-94%. HE DENIES ANY NEEDS AT THIS TIME. WILL CONT WITH POC.
[2019-06-07] VITALS (24 sets, daily range): BP systolic 91–154; BP diastolic 41–96
--- NOTE | 2019-06-07 01:00 | NUR ---
PT RESTING PEACEFULLY WITH BIPAP ON, VSS. NO SIGNS OF ACUTE DISTRESS NOTED. CALL LIGHT IN REACH, BED IN LOWEST POSITION. WILL CONT CLOSE MONITORING IN ICU.
--- NOTE | 2019-06-07 03:00 | NUR ---
REASSESSMENT COMPLETE. NO CHANGES IN PT CONDITION. VSS. ENCOURAGED REPOSITIONING, PT STATED THAT HE WANTED TO REMAIN ON HIS BACK. WILL CONT TO ENCOURAGE REPOSITIONING TO MAINTAIN SKIN INTEGRITY. SEE FLOWSHEET FOR FURTHER DETAILS. VSS. WILL CONT WITH POC.
--- NOTE | 2019-06-07 05:00 | NUR ---
CHG BATH AND COMPLETE LINEN CHANGE PROVIDED. GREG CARE PROVIDED. REPOSITIONED FOR COMFORT. NO FURTHER NEEDS. VSS.
--- NOTE | 2019-06-07 06:00 | NUR ---
PT REQUEST BREAK FROM BIPAP. TOOK BIPAP OFF FOR 3 MINUTES OR LESS AND PT DESAT TO 80%. BIPAP BACK ON. REPOSITIONED UP IN THE BED. O2 SAT CLIMBING NOW. PT IS UNABLE TO TOLERATE BIPAP OFF.
--- NOTE | 2019-06-07 06:21 | NUR ---
PT CONVERTED TO NSR ON MONITOR. HR 80-81 BPM.
--- NOTE | 2019-06-07 07:15 | NUR ---
REPORT RECEIVED. ASSESSMENT COMPLETE PER FLOW SHEET VSS PT RESTING COMFORTABLY WILL CONTINUE TOMONITOR
[2019-06-07 08:27] LABS: BASOPHILS 0.1 % (0-2); EOSINOPHILS 0 % (0-7); HEMATOCRIT 33.1 % (42.0-54.0); HEMOGLOBIN 10.7 g/dL (13.5-17.5); IMMATURE GRANULOCYTES 0.4 % (0-5); LYMPHOCYTES 2.9 % (15-50); MCH 28.6 pg (26.0-34.0); MCHC 32.3 g/dL (31.0-37.0); MCV 88.5 fL (80.0-100.0); MEAN PLATELET VOLUME 10.6 fL (7.4-10.4); MONOCYTES 5.8 % (2-11); NEUTROPHILS 90.8 % (40-80); PLATELET COUNT 232 10x3/uL (130-400); RBC 3.74 10x6/uL (4.20-6.10); RDW 18.4 % (11.5-14.5); WBC 12.5 10x3/uL (4.8-10.8)
[2019-06-07 08:40] LABS: ALBUMIN 2.4 g/dL (3.4-5.0); ALKALINE PHOSPHATASE 111 U/L (46-116); ALT (SGPT) 73 U/L (10-68); BILIRUBIN - TOTAL 0.37 mg/dL (0.2-1.3); CALC OSMOLALITY 291 mosm/kg (275-300); CALCIUM 8.2 mg/dL (8.5-10.1); CARBON DIOXIDE 39.9 mmol/L (21.0-32.0); CHLORIDE - SERUM 106 mmol/L (98-107); CREATININE - SERUM 0.7 mg/dL (0.6-1.3); GLUCOSE 100 mg/dL (74-106); POTASSIUM - SERUM 4.3 mmol/L (3.5-5.1); PROTEIN - SERUM 6.3 g/dL (6.4-8.2); SODIUM 145 mmol/L (136-145); T4 THYROXINE 8.3 ug/dL (4.7-13.3); UREA NITROGEN 21 mg/dL (7-18); eGFR NON AFRICAN AMERICAN > 90 mL/min (90-120)
--- NOTE | 2019-06-07 09:49 | NUR ---
Nutrition follow-up: Pt now in ICU Admit wt: 113# -> current wt: 106# Diet: Regular with vanilla Ensure TID PO intake ~25-50% of meals Pt is now on BIPAP with poor po intake Pt is now assessed with severe malnutrition of acute illness R/T advanced age with pneumonia AEB: 1. < 50% intake of estimated energy needs for > 5 days 2. > 2% weight loss in 5 days (113# on admit - now 109#) Due to pts severe malnutrition recommend starting nutrition support of TF via PEG tube vs NGT with Jevity 1.2 lj started @ 25 ml/hr with increase to goal rate of 45 ml/hr RDN following.
--- NOTE | 2019-06-07 10:15 | NUR ---
BIPAP REMOVED PT GIVEN AM MEDICATION WITH MINIMAL DIFFICULTY. O2 SAT DECREASED TO 85% WITHIN 2 MINUTES. BIPAP PLACED BACK ON AT THIS TIME.
--- NOTE | 2019-06-07 11:00 | NUR ---
REASSESSMENT COMPLETE PER FLOW SHEET. VSS. NO NEW CHANGES WILL CONTINUE TO MONITOR.
--- NOTE | 2019-06-07 12:26 | NUR ---
PT BIPAP REMOVED TOE AT LUNCH. O2 SAT 92% ON 15L HFNC
--- NOTE | 2019-06-07 15:20 | NUR ---
REASSESSMENT COMPLETE PER FLOW SHEET. VSS. NO NEW CHANGES WILL CONTINUE TO MONITOR
--- NOTE | 2019-06-07 16:00 | NUR ---
FAMILY AT BEDSIDE. GIVEN UPDATE
--- NOTE | 2019-06-07 17:53 | NUR ---
FAMILY AT BEDSIDE UPDATE GIVEN. PT GIVEN DINNER TRAY ATE 40%
--- NOTE | 2019-06-07 19:00 | NUR ---
REPORT RECEIVED, PT RESTING IN BED, AAOX3, BIPAP IN PLACE, DISORIENTED TO TIME, REORIENTED NEEDED. ASSESSMENT COMPLETED, SEE FLOWSHEET. PIV IN LEFT FOREARM INFUSING, SEE IV FLOWSHEET. NO ACUTE DISTRESS NOTED, WILL CONTINUE TO MONITOR.
--- NOTE | 2019-06-07 19:41 | NUR ---
UPON ARRIVING IN PT ROOM TO ASSESS AND GIVE BREATHING TREATMENT. PT SATS WERE 54% BIPAP MASK WAS ON HIS FACE BUT NOT ON. BIPAP WAS ON STANDBY. I TURNED BIPAP ON TO 07/27, , 100% SATS CAME UP TO 88 AND A FEW MINUTES LATER TO 92% FIO2 IS NOW 70% AND HOLDING SATS AT 90%
--- NOTE | 2019-06-07 21:00 | NUR ---
PT AAOX4, PM MEDS ADMINISTERED WITHOUT DIFFICULTY. WILL CONTINUE TO MONITOR.
--- NOTE | 2019-06-07 23:00 | NUR ---
PT RESTING IN BED, BIPAP IN PLACE, VITALS STABLE.
[2019-06-08] VITALS (23 sets, daily range): BP systolic 97–158; BP diastolic 56–98
--- NOTE | 2019-06-08 01:00 | NUR ---
PT RESTING IN BED, NO ACUTE DISTRESS NOTED. BIPAP IN PLACE
--- NOTE | 2019-06-08 03:00 | NUR ---
PT RESTING IN BED, AAOX4, NO ACUTE DISTRESS NOTED.
--- NOTE | 2019-06-08 07:00 | NUR ---
SHIFT ASSESSMENT COMPLETED. PT CARE ASSUMED, MONITORS ON AND WORKING, BIPAP ON 70% PT TOLERATING WELL. CALL LIGHT WITHIN REACH, SEE FLOW SHEET FOR FURTHER DETAILS. WILL CONTINUE TO OBSERVE.
[2019-06-08 08:19] LABS: BASOPHILS 0 % (0-2); EOSINOPHILS 0 % (0-7); HEMATOCRIT 35.6 % (42.0-54.0); HEMOGLOBIN 11.4 g/dL (13.5-17.5); IMMATURE GRANULOCYTES 0.4 % (0-5); LYMPHOCYTES 3.7 % (15-50); MCH 28.7 pg (26.0-34.0); MCV 89.7 fL (80.0-100.0); MEAN PLATELET VOLUME 10.5 fL (7.4-10.4); NEUTROPHILS 88.9 % (40-80); PLATELET COUNT 261 10x3/uL (130-400); RBC 3.97 10x6/uL (4.20-6.10); RDW 18.4 % (11.5-14.5); WBC 11.2 10x3/uL (4.8-10.8)
[2019-06-08 08:30] LABS: CALC OSMOLALITY 288 mosm/kg (275-300); CALCIUM 8.5 mg/dL (8.5-10.1); CARBON DIOXIDE 38.8 mmol/L (21.0-32.0); CHLORIDE - SERUM 103 mmol/L (98-107); CREATININE - SERUM 0.7 mg/dL (0.6-1.3); GLUCOSE 108 mg/dL (74-106); POTASSIUM - SERUM 4.8 mmol/L (3.5-5.1); SODIUM 143 mmol/L (136-145); UREA NITROGEN 21 mg/dL (7-18); eGFR NON AFRICAN AMERICAN > 90 mL/min (90-120)
--- NOTE | 2019-06-08 09:00 | NUR ---
PT LYING IN BED RESTING, MONITORS ON AND WORKING, VITALS STABLE. CALL LIGHT WITHIN REACH, WILL CONTINUE TO OBSERVE.
--- NOTE | 2019-06-08 11:00 | NUR ---
PT BECAME INCREASINGLY CONFUSED AND DISORIENTED AFTER MORNING MEDS, PT PULLING AT LINES, PULLING BIPAP AND VAPOTHERM OFF. MD AWARE. FAMILY AT BEDSIDE, UPDATE PROVIDED, WILL CONTINUE TO OBSERVE.
--- NOTE | 2019-06-08 13:00 | NUR ---
PT LYING IN BED RESTING, MONITORS ON AND WORKING, VITALS STABLE, REC'D ORDERS TO D/C AMIO DRIP AND START PO. PT REMAINS IN NORMAL SINUS, WILL CONTINUE TO OBSERVE.
--- NOTE | 2019-06-08 15:00 | NUR ---
PT REMAINS CONFUSED, CONTINUES TO PULL AT LINES. VITALS STABLE, HEART RATE REMAINS NORMAL SINUS. SEE FLOW SHEET FOR FURTHER DETAILS. FAMILY AT BEDSIDE, UPDATE PROVIDED, WILL CONTINUE TO OBSERVE.
--- NOTE | 2019-06-08 17:00 | NUR ---
FULL LINEN CHANGE DONE, MONITORS ON AND WORKING, VITALS STABLE, PT DOES NOT TOLERATE BIPAP OFF BC PT WILL NOT KEEP VAPOTHERM ON, WILL CONTINUE TO OBSERVE.
--- NOTE | 2019-06-08 19:00 | NUR ---
REPORT REC'D, ASSUMED PT'S CARE. ASSESSMENT COMPLETED PER FLOWSHEETS. PT AWAKE ON BIPAP, UNLABORED, O2SAT 95% VIA BIPAP. DENIES ANY DISCOMFORT AT THIS TIME, STATES THAT MASK HELPED TO BREATHE EASIER. WILL CONT TO MONITOR.
--- NOTE | 2019-06-08 21:00 | NUR ---
NO VISITORS AT THIS TIME. PT ON BIPAP WATCHING TV, NO NEEDS VOICES.
--- NOTE | 2019-06-08 22:00 | NUR ---
ASSISTED PT WITH URINAL, VOIDS WITHOUT DIFFIC. GREG CARE PROVIDED. PAD CHANGED. REPOSIIONED FOR COMFORT. CPOC.
--- NOTE | 2019-06-08 23:00 | NUR ---
REASSESSMENT COMPLETED PER FLOWSHEETS. NO ACUTE CHANGES IN PT'S STATUS NOTED. VSS. CPOC.
[2019-06-09] VITALS (24 sets, daily range): BP systolic 112–139; BP diastolic 68–92
--- NOTE | 2019-06-09 01:00 | NUR ---
PT RESTING QUIETLY WITHOUT DISTRESS AT THIS TIME. CONT ON BIPAP. CALL LIGHT IN REACH. CPOC.
--- NOTE | 2019-06-09 03:00 | NUR ---
REASSESSMENT COMPLETED. SEE FLOWSHEET FOR ALL FINDINGS.PT CONT ON BIPAP WITHOUT DISTRESS AT THIS TIME. VSS. CPOC.
--- NOTE | 2019-06-09 08:29 | NUR ---
Nutrition follow-up: Diet: Regular as tolerated with Ensure TID PO Intake 25-50% of some meals; appetite improving Labs reviewed Wt: 114# BIPAP at night and as needed during the day RDN following.
--- NOTE | 2019-06-09 08:53 | NUR ---
SPOKE WITH MRS GANT BY PHONE. SHE REITERATED THAT PT DOES NOT WANT TO BE FULL CODE STATUS OR ON VENTILATOR. DR. ORTEZ HAS SPOKEN WITH FAMILY AND DISCUSSED PROGNOSIS AND CODE STATUS. PT IS DNR.
--- NOTE | 2019-06-09 08:57 | NUR ---
0730 PT DESAT RAPIDLY WHEN OFF BIPAP AND ON 15 L HF NC FOR TAKING MEDS. PROMPTLY PLACED BACK ON BIPAP PATIENT QUICKLY DROPPED TO 40% O2 SAT. RECOVERED BACK TO 90% WHEN BIPAP ON.
--- NOTE | 2019-06-09 11:00 | NUR ---
NO CHANGES IN PREVIOUS ASSESS. PT ALTERNATING FROM VAPOTHERM 75% AND BIPAP. KEEP SATS >88%.
--- NOTE | 2019-06-09 19:05 | NUR ---
1500 NO CHANGES IN PT ASSESS.
--- NOTE | 2019-06-09 19:25 | NUR ---
PATIENT ON BIPAP AT TIME OF ARRIVAL TO ROOM. PATIENT RESTLESS, TRYING TO PULL MASK OF AND TRYING TO DISCONNECT PULSE OXIMETRY. VSS. URINAL AT BEDSIDE, CALL LIGHT WITHIN REACH. BED LOWERED AND LOCKED. WILL CONTINUE TO MONITOR.
--- NOTE | 2019-06-09 21:00 | NUR ---
PATIENT SWITCHED FROM BIPAP TO VAPOTHERM FOR NIGHT TIME ADMINISTRATION OF MEDS. PATIENT TOLERATED WELL. FAMILY AT BEDSIDE AT THIS TIME. BED LOWERED/LOCKED AND CALL LIGHT WITHIN REACH. WILL CONTINUE TO MONITOR.
--- NOTE | 2019-06-09 23:03 | NUR ---
PATIENT PLACED BACK ON BIPAP FOR NIGHT. TOLERATING WELL.
[2019-06-10] VITALS (22 sets, daily range): BP systolic 84–147; BP diastolic 49–94; Ht 175.3 cm; Wt 47.3 kg
--- NOTE | 2019-06-10 02:12 | NUR ---
ROSE RESTING QUIETLY. VSS. BED LOWERED/LOCKED. CALL LIGHT WITHIN REACH. WILL CONTINUE TO MONITOR.
--- NOTE | 2019-06-10 02:42 | NUR ---
REPORT GIVEN TO OLGA BROWN RN
--- NOTE | 2019-06-10 03:15 | NUR ---
REASSESSMENT PER FLOWSHEET, NO ACUTE CHANGES NOTED. PT ORIENTED TO SELF ONLY, REMAINS ON BIPAP, WILL MONITOR.
--- NOTE | 2019-06-10 05:55 | NUR ---
BED ALARM NOTED, UPON ENTRANCE INTO ROOM PT URINATING OFF SIDE OF BED ONTO FLOOR. STATES HE DIDNT SEE HIS URINAL ON THE BEDRAIL. ASSISTED BACK UP IN BED, CALL LIGHT IN REACH.
--- NOTE | 2019-06-10 06:04 | NUR ---
PT RESTING IN BED WITH BIPAP IN PLACE, VSS, CONT TO MONITOR.
--- NOTE | 2019-06-10 07:30 | NUR ---
REPORT RECIEVED FROM DAWIT CHONG. LINEN CHANGE DONE AT THIS TIME. PATIENT IS DISORIENTED X3. EDUCATED ON NEEDS OF BIPAP. REORIENTED. DENIES PAIN. WARM BLANKET PROVIDED. NO DISTRESS AT THIS TIME. ASSESSMENT DONE. INCONTINENT. PULSES PALP. DIMINISHED LUNGS BILAT.
--- NOTE | 2019-06-10 09:00 | NUR ---
PATIENT ATTEMPTING TO GET OUT OF BED. REORIENTED TO PLACE, TIME, SITUATION. BIPAP MACHINE PUT BACK ON. EDUCATED ON WHY PATIENT NEEDS TO REMAIN ON BIPAP MACHINE. MORNING MEDS GIVEN PER MAR WITH ENSURE.
--- NOTE | 2019-06-10 11:50 | NUR ---
family is at bedside. update given. dr maynard at bedside. orders given.
--- NOTE | 2019-06-10 13:17 | NUR ---
PATIENT TOLERATING VAPOTHERM PER DR CASPER. PATIENT ATE PUDDING AND DRANK ENSURE. SLEEPING. FAMILY IS AT BEDSIDE. CONFUSED. VSS. PROCAL STARTED PER ORDER. WILL CONTINUE TO MONITOR
--- NOTE | 2019-06-10 17:00 | NUR ---
patient resting. alteranted between vapotherm and bipap machine through out day. patient is still confused. family is at bedside. family wanted more information on hospice and how to get a bipap. called kee briefcase sewer to inform her
--- NOTE | 2019-06-10 19:00 | NUR ---
PT ASSESSMENT COMPLETED AT THIS TIME AFTER BED SIDE ROUNDING, NO CHANGES NOTED FROM NURSE REPORT, VSS, WILL CONT TO MONITOR FOR CHANGES
--- NOTE | 2019-06-10 21:00 | NUR ---
PT TAKEN OFF BIPAP FOR 2100 MEDS, PT TOLERATED VAPOTHERM FOR ABOUT 15 MIN BEFORE HAVING TO BE PLACED BACK ON BIPAP DUE TO DECREASING SPO2 LEVELS
--- NOTE | 2019-06-10 23:00 | NUR ---
PT REASSESSMENT COMPLETED AT THIS TIME, NO CHANGES IN PATIENT COND. NOTED, WILL CONT TO MON
[2019-06-11] VITALS (23 sets, daily range): BP systolic 115–140; BP diastolic 66–95
--- NOTE | 2019-06-11 01:00 | NUR ---
PT RESTING WITH EYES CLOSED, RESP EVEN AND NON LABORED, NO DISTRESS NOTED
--- NOTE | 2019-06-11 03:00 | NUR ---
PT REASSESSMENT COMPLETED AT THIS TIME, NO SIGNIFICANT CHANGES NOTED
--- NOTE | 2019-06-11 05:00 | NUR ---
PT RESTING WITH EYES CLOSED, RESP EVEN, VSS, NO DISTRESS NOTED
--- NOTE | 2019-06-11 07:15 | NUR ---
REPORT RECEIVED. PT IS RESTING QUIETLY WEARING BIPAP. HE HAS A LEFT FOREARM IV WITH NS AND PROCALAMINE INFUSING. BED ALARM IS ON. VSS. WILL CONTINUE TO MONITOR.
--- NOTE | 2019-06-11 09:40 | NUR ---
PT RESTING QUIETLY. WEARING BIPAP. VSS. WILL CONTINUE TO MONITOR.
--- NOTE | 2019-06-11 11:00 | NUR ---
PT RESTING QUIETLY. ON BIPAP. VSS. BED IN LOWEST POSITION. BED ALARM ON. SIDE RAILS UP X2. CALL LIGHT IN REACH.
--- NOTE | 2019-06-11 12:33 | NUR ---
PT TOOK MEDICATIONS IN PUDDING WITH NO ISSUES. FAMILY AT BEDSIDE. WANT TO SPEAK TO CASE MANAGEMENT. PT ON VAPOTHERM AT THIS TIME. WILL PUT BACK ON BIPAP AFTER PT HAS A CHANCE TO TRY TO EAT SOME LUNCH. WILL CONTINUE TO MONITOR.
--- NOTE | 2019-06-11 14:30 | NUR ---
PT RESTING QUIETLY. ON BIPAP AT 60%. VSS. WILL CONTINUE TO MONITOR.
--- NOTE | 2019-06-11 14:50 | MORECARE ---
CASE MANAGEMENT DISCHARGE SUMMARY PATIENT: WOODROW ZARAGOZA UNIT: [id number] ADM DATE: 06/03/19 AGE: 73 : 46 SEX: M ROOM/BED: D.2309 AUTHOR: CATARINO,DOC PHYSICIAN: REFERRING PHYSICIAN: EMILY JUDD MD DATE OF SERVICE: 06/11/19 Discharge Plan Patient Name: WOODROW ZARAGOZA Facility: [facility]:[place] : 1945 Planned Disposition: Nursing Facility [facility] Cert Anticipated Discharge Date: Discharge Date: Expected LOS: Initial Reviewer: [email or web address] Initial Review Date: 06/06/2019 Generated: 06/11/19 3:50 pm Comments DCP- Discharge Planning Updated by [email or web address]: Emiliana Santizo on 06/11/19 1:[address] CM met with patient's Renata Zaragoza #[phone] and daughter Luanne Sarmiento #[phone], regarding Inpatient hospice. Patient is a long-term resident in [facility]. Spouse states the patient is a DNR and would not like to live like this. CM explained the benefits of hospice and family would like to meet with a [facility] inside sales representative 06/12, between the hours of 1084-3025 pm. Spouse will be visiting patient at this time. CM encouraged family to write down questions, as they thought of them and to bring the questions when they speak with the hospice inside sales representative. CM contacted Anne, with [facility] @[phone], provided required information and time of requested visit. Also, notified patient's nurse of same. DCP- Discharge Planning Updated by [email or web address]: Shruthi Batista on 06/06/19 12:[address] Patient Name: WOODROW ZARAGOZA Admission Status: ER Accout number: [id number] Admission Date: 06-03-2019 : 1945 Admission Diagnosis: Attending: EMILY JUDD Current LOS: 3 Anticipated DC Date: Planned Disposition: Nursing Facility [facility] Cert Primary [facility] or PPO Discharge Planning Comments: CM met with patient and explained CM role and obtained verbal consent. Patient is currently on BiPap and difficult to understand. Patient is a jail resident of [facility] [phone].( Medicaid bed) Patient does plan to return there upon discharge. CM called [facility] to verify bed status there and plan to readmit after discharge and they did agree to readmission. CM will continue to follow and assist as needed with discharge planning / needs. Orthotic/Prosthetic Clinician: Shruthi Batista DCPIA - Discharge Planning Initial Assessment Updated by [email or web address]: Shruthi Batista on 06/06/19 1:43 pm * PCP BINTA * Pharmacy [facility] * Preadmission Environment [place] * Facility Name [facility] [phone] * ADLs Partial Dependent * Additional services required to return to the preadmission environment? No * Can the patient safely return to the preadmission environment? Yes * Has this patient been hospitalized within the prior 30 days at any hospital? No Last DP export: 06/06/19 12:53 Patient Name: WOODROW ZARAGOZA Page [id number] at 1450 All edits/amendments must be made on the electronic document DICTATION DATE: 06/11/191448 MANAGER TECHNOLOGY: CRISTIAN 06/11/191448 RPT#: [id number] OR DATE: STATUS: ADM IN [facility] [address] [place] [address] END OF REPORT
--- NOTE | 2019-06-11 16:55 | NUR ---
PT SITTING UP IN BED RESTING QUIETLY WATCHING TV. VSS. NO COMPLAINTS AT THIS TIME. ALERT AND CALM. CALL LIGHT IN REACH. WILL CONTINUE TO MONITOR.
--- NOTE | 2019-06-11 17:45 | NUR ---
PT PUT ON VAPOTHERM TO BE ABLE TO TAKE MEDICATION WITH PUDDING. UNABLE TO MAINTAIN O2 SATS. DROPPED TO 70S. PUT PT BACK ON BIPAP. O2 SAT AT 90%. PT ORIENTED TO CONVERSATION. WILL CONTINUE TO MONITOR.
--- NOTE | 2019-06-11 19:00 | NUR ---
PT ASSESSMENT COMPLETED AT THIS TIME, NO CHANGES FROM NURSE REPORT, VSS, WILL CONT. TO MONITOR
--- NOTE | 2019-06-11 21:00 | NUR ---
pt given po meds without problems
--- NOTE | 2019-06-11 23:00 | NUR ---
pt reassessment completed at this time, no changes noted, vss
[2019-06-12] VITALS (19 sets, daily range): BP systolic 112–138; BP diastolic 63–96
--- NOTE | 2019-06-12 01:00 | NUR ---
pt resting with eyes closed, resp even non labored, vss
--- NOTE | 2019-06-12 03:00 | NUR ---
PT REASSESSMENT COMPLETED AT THIS TIME, NO CHANGES NOTED, WILL CONT TO MONITOR
--- NOTE | 2019-06-12 05:00 | NUR ---
PT RESTING WITH EYES CLOSED, RESP EVEN NON LABORED, VSS, NO DISTRESS NOTED
--- NOTE | 2019-06-12 07:15 | NUR ---
REPORT RECEIVED. ASSESSMENT COMPLETE PER FLOW SHEET. VSS. NO NEW CHANGES WILL CONTINUE TO MONITOR
--- NOTE | 2019-06-12 09:51 | NUR ---
Nutrition follow-up: Diet: regular with vanilla Ensure TID PO intake ~40% average of meals Pt back on BIPAP at this time. Last BM charted 06/06 Wt: 104# Recommend starting nutrition support of TF via NGT vs PEG tube placement due to pts severe malnutrition and continued poor po intake. RDN following.
--- NOTE | 2019-06-12 11:15 | NUR ---
REASSESSMENT COMPLETE PER FLOW SHEET. VSS. NO NEW CHANGES PT RESTING COMFORTABLY WILL CONTINUE TO MONITOR
--- NOTE | 2019-06-12 12:40 | MORECARE ---
CASE MANAGEMENT DISCHARGE SUMMARY PATIENT: WOODROW ZARAGOZA UNIT: [id number] ADM DATE: 06/03/19 AGE: 73 : 47 SEX: M ROOM/BED: D.2309 AUTHOR: CATARINO,DOC PHYSICIAN: REFERRING PHYSICIAN: EMILY JUDD MD DATE OF SERVICE: 06/12/19 Discharge Plan Patient Name: WOODROW ZARAGOZA Facility: [facility]:[place] : 1945 Planned Disposition: Nursing Facility [facility] Cert Anticipated Discharge Date: Discharge Date: Expected LOS: Initial Reviewer: [email or web address] Initial Review Date: 06/06/2019 Generated: 06/12/19 1:40 pm DCP- Discharge Planning Updated by [email or web address]: Emiliana Santizo on 06/11/19 1:[address] CM met with patient's Renata Zaragoza #[phone] and daughter Luanne Sarmiento #[phone], regarding Inpatient hospice. Patient is a long-term resident in [facility]. Spouse states the patient is a DNR and would not like to live like this. CM explained the benefits of hospice and family would like to meet with a [facility] chemical sales representative 06/12, between the hours of [phone] pm. Spouse will be visiting patient at this time. CM encouraged family to write down questions, as they thought of them and to bring the questions when they speak with the hospice chemical sales representative. CM contacted Anne, with [facility] @1411, provided required information and time of requested visit. Also, notified patient's nurse of same. DCP- Discharge Planning Updated by [email or web address]: Shruthi Batista on 06/06/19 12:[address] Patient Name: WOODROW ZARAGOZA Admission Status: ER Accout number: [id number] Admission Date: 06-03-2019 : 1945 Admission Diagnosis: Attending: EMILY JUDD Current LOS: 3 Anticipated DC Date: Planned Disposition: Nursing Facility [facility] Cert [facility] or PPO Discharge Planning Comments: CM met with patient and explained CM role and obtained verbal consent. Patient is currently on BiPap and difficult to understand. Patient is a long term care phlebotomist resident of [facility] [phone].( Medicaid bed) Patient does plan to return there upon discharge. CM called [facility] to verify bed status there and plan to readmit after discharge and they did agree to readmission. CM will continue to follow and assist as needed with discharge planning / needs. Jewelry Bearing Maker: Shruthi Batista DCPIA - Discharge Planning Initial Assessment Updated by [email or web address]: Shruthi Batista on 06/06/19 1:43 pm * PCP BINTA * Pharmacy [facility] * Preadmission Environment [employer] * Facility Name [facility] [phone] * ADLs Partial Dependent * Additional services required to return to the preadmission environment? No * Can the patient safely return to the preadmission environment? Yes * Has this patient been hospitalized within the prior 30 days at any hospital? No Last DP export: 06/11/19 1:50 Patient Name: WOODROW ZARAGOZA Page [id number] at 1240 All edits/amendments must be made on the electronic document DICTATION DATE: 06/12/19 1239 DROP MACHINE OPERATOR: CRISTIAN 06/12/19 1239 RPT#: [id number] DC DATE: STATUS: ADM IN [facility] [address] [place] [address] END OF REPORT
--- NOTE | 2019-06-12 13:10 | NUR ---
HOSPICE AT BEDSIDE.
--- NOTE | 2019-06-12 15:40 | NUR ---
DR PÉREZ F[facility]IRE [facility]
--- NOTE | 2019-06-12 16:00 | NUR ---
DR BINTA FREIRE GIVEN UDP[facility] PT TO BE TRANSFERED TO [facility]
--- NOTE | 2019-06-12 16:20 | NUR ---
DATABASE ADMINISTRATION PROJECT MANAGER PAGED GIVEN UPDATE REGUARDING TRANSFER
--- NOTE | 2019-06-12 18:28 | NUR ---
[facility] ARRIVED PT LEFT VIA STRETCHER VSS UPON DISCHARGE. FAMILY CALLED GIVEN UDPATE. JOSY CALLED GIVEN UPDATE. NEEDS MET
--- NOTE | 2019-06-13 11:02 | MORECARE ---
CASE MANAGEMENT DISCHARGE SUMMARY PATIENT: WOODROW ZARAGOZA UNIT: [id number] ADM DATE: 06/03/19 AGE: 73 : 47 SEX: M ROOM/BED: D.2309 AUTHOR: CATARINO,DOC PHYSICIAN: REFERRING PHYSICIAN: EMILY JUDD MD DATE OF SERVICE: 06/13/19 Discharge Plan Patient Name: WOODROW ZARAGOZA Facility: [facility]:[place] : 1945 Planned Disposition: Nursing Facility [facility] Cert Anticipated Discharge Date: Discharge Date: 06/12/2019 Expected LOS: Initial Reviewer: [email or web address] Initial Review Date: 06/06/2019 Generated: 06/13/19 12:02 pm DCP- Discharge Planning Updated by [email or web address]: Emiliana Santizo on 06/11/19 1:[address] CM met with patient's Renata Zaragoza #[phone] and daughter Luanne Sarmiento #[phone], regarding Inpatient hospice. Patient is a long-term resident in [facility]. Spouse states the patient is a DNR and would not like to live like this. CM explained the benefits of hospice and family would like to meet with a [facility] artist representative 06/12, between the hours of [phone] pm. Spouse will be visiting patient at this time. CM encouraged family to write down questions, as they thought of them and to bring the questions when they speak with the hospice artist representative. CM contacted Anne, with [facility] @1411, provided required information and time of requested visit. Also, notified patient's nurse of same. DCP- Discharge Planning Updated by [email or web address]: Shruthi Batista on 06/06/19 12:[address] Patient Name: WOODROW ZARAGOZA Admission Status: ER Accout number: [id number] Admission Date: 06-03-2019 : 1945 Admission Diagnosis: Attending: EMILY JUDD Current LOS: 3 Anticipated DC Date: Planned Disposition: Nursing Facility [facility] Cert [facility] or [facility]PO Discharge Planning Comments: CM met with patient and explained CM role and obtained verbal consent. Patient is currently on BiPap and difficult to understand. [facility] [phone].( Medicaid bed) Patient does plan to return there upon discharge. CM called [facility] to verify bed status there and plan to readmit after discharge and they did agree to readmission. CM will continue to follow and assist as needed with discharge planning / needs. Technology Applications Engineer: Shruthi Batista DCPIA - Discharge Planning Initial Assessment Updated by [email or web address]: Shruthi Batista on 06/06/19 1:43 pm * PCP BINTA * Pharmacy [facility] * Preadmission Environment [facility] * [facility] [phone] * ADLs Partial Dependent * Additional services required to return to the preadmission environment? No * Can the patient safely return to the preadmission environment? Yes * Has this patient been hospitalized within the prior 30 days at any hospital? No Last DP export: 06/12/19 11:40 Patient Name: WOODROW ZARAGOZA Page [id number] at 1102 All edits/amendments must be made on the electronic document DICTATION DATE: 06/13/19 110 IGNITION MECHANIC: CRISTIAN 06/13/19 1102 RPT#: [id number] UT DATE:06/12/19 STATUS: DIS IN [facility] [address] [place] [address] END OF REPORT
== END 2019-06-12 18:28 | disposition home health service (06) | DRG 871 ==
LOC: D.ER 22:17 → D.ICU 23:55 → D.M2 23:55 → D.ICU 06-06 07:28
PROVIDERS: Family Medicine; ADMIT Family Medicine; ATTEND Family Medicine
DX: A41.9 Sepsis, unspecified organism (principal); J15.6 Pneumonia due to other Gram-negative bacteria; E43 Unspecified severe protein-calorie malnutrition; J96.22 Acute and chronic respiratory failure with hypercapnia; J96.21 Acute and chronic respiratory failure with hypoxia; G93.41 Metabolic encephalopathy; J18.1 Lobar pneumonia, unspecified organism; J15.212 Pneumonia due to Methicillin resistant Staphylococcus aureus; F17.203 Nicotine dependence unspecified, with withdrawal; J47.0 Bronchiectasis with acute lower respiratory infection; I25.10 Atherosclerotic heart disease of native coronary artery without angina pectoris; J43.9 Emphysema, unspecified; F41.8 Other specified anxiety disorders; K21.9 Gastro-esophageal reflux disease without esophagitis; E78.5 Hyperlipidemia, unspecified; M06.9 Rheumatoid arthritis, unspecified; K59.00 Constipation, unspecified; D64.9 Anemia, unspecified; I48.91 Unspecified atrial fibrillation; Z66 Do not resuscitate; K73.9 Chronic hepatitis, unspecified; R40.2244 Coma scale, best verbal response, confused conversation, 24 hours or more after hospital admission; R40.2364 Coma scale, best motor response, obeys commands, 24 hours or more after hospital admission; R40.2134 Coma scale, eyes open, to sound, 24 hours or more after hospital admission